=== PATIENT | female | born 1945 | race Two or more races ===

== ENCOUNTER 2023-01-28 17:22 | Emergency (ER) | payer SELFPAY ==
[2023-01-28 19:31] VITALS: BP 168/62; TEMP 98.1
[2023-01-28] MEDS ORDERED: ERY05OO OP (19:33)
[2023-01-29 00:58] VITALS: PULSE 77; RESP 18; O2SAT 96
== END 2023-01-28 20:33 | disposition home or self-care (01) ==
LOC: ER 17:22
DX: H10.9 Unspecified conjunctivitis (principal); I10 Essential (primary) hypertension; Z98.890 Other specified postprocedural states